=== PATIENT | female | born 2000 | race Caucasian/White ===

== ENCOUNTER 2025-04-01 14:24 | Outpatient (RCR) | payer MEDICAID, SELFPAY | END 2025-04-28 23:59 | disposition home or self-care (01) | LOC: INF 14:24 | PROVIDERS: PCP Family Medicine; Visit Provider Midwife | DX: O26.893 Other specified pregnancy related conditions, third trimester (principal); Z67.91 Unspecified blood type, Rh negative; Z3A.00 Weeks of gestation of pregnancy not specified ==